=== PATIENT | female | born 1960 | race Caucasian/White ===

== ENCOUNTER → 2023-05-12 10:54 | Outpatient (REF) | payer OTHER, SELFPAY | LOC: WDC 10:54 | PROVIDERS: ATTENDING PHYSICIAN Family Medicine | DX: Z12.39 Encounter for other screening for malignant neoplasm of breast (principal); Z12.31 Encounter for screening mammogram for malignant neoplasm of breast | CPT/HCPCS: 77063; 77067 ==

== ENCOUNTER → 2024-08-02 08:25 | Outpatient (REF) | payer OTHER, SELFPAY | LOC: WDC 08:25 | PROVIDERS: ATTENDING PHYSICIAN Family Medicine | DX: Z12.39 Encounter for other screening for malignant neoplasm of breast (principal); Z12.31 Encounter for screening mammogram for malignant neoplasm of breast | CPT/HCPCS: 77063; 77067 ==

== ENCOUNTER → 2024-12-12 09:51 | Outpatient (REF) | payer OTHER, SELFPAY | LOC: RAD 09:51 | PROVIDERS: ATTENDING PHYSICIAN Internal Medicine Rheumatology; FAMILY PHYSICIAN Family Medicine | DX: Z78.0 Asymptomatic menopausal state (principal); M05.79 Rheumatoid arthritis with rheumatoid factor of multiple sites without organ or systems involvement | CPT/HCPCS: 77080 ==